=== PATIENT | female | born 1980 | race African-American/Black ===

== ENCOUNTER 2017-01-08 10:11 | Emergency (ER) | payer SELFPAY ==
[~2017-01-08] VITALS: Ht 167.6 cm; Wt 81.5 kg
[~2017-01-08 10:11] MED LIST: NOCURR
[2017-01-08] MEDS ORDERED: BIRTH CONTROL PO (10:28)
[2017-01-08] MEDS ORDERED: CETIRIZINE HCL 10 MG TABLET PO ONE (10:45)
[2017-01-08] MEDS ORDERED: PredniSONE 20 MG TABLET PO ONE (10:45)
[2017-01-08 11:37] VITALS: BP 128/80
== END 2017-01-08 12:08 | disposition home or self-care (01) ==
LOC: EMS 10:12
DX: L50.0 Allergic urticaria (principal); R03.0 Elevated blood-pressure reading, without diagnosis of hypertension
CPT/HCPCS: 99283; J7512